=== PATIENT | male | born 1975 | race Hispanic/Latino ===

== ENCOUNTER 2021-02-07 14:14 | Emergency (ER) | payer OTHER, SELFPAY ==
[~2021-02-07] VITALS: Ht 170.2 cm; Wt 106.6 kg
[2021-02-07 14:15] VITALS: BP 150/101
[2021-02-07] MEDS ORDERED: NAPR-1179 PO (15:33)
[2021-02-07] MEDS ORDERED: CLIN300C10 PO (15:33)
== END 2021-02-07 15:45 | disposition home or self-care (01) ==
LOC: EDH 14:14
DX: N49.2 Inflammatory disorders of scrotum (principal); Z88.5 Allergy status to narcotic agent
CPT/HCPCS: 82948; 87070; 87076; 87077; 87186

== ENCOUNTER 2022-12-31 10:18 | Emergency (ER) | payer OTHER ==
[~2022-12-31] VITALS: Ht 170.2 cm; Wt 91.2 kg
[~2022-12-31 10:18] MED LIST: CLIN-141 PO; NAPR-1179 PO
[2022-12-31] MEDS ORDERED: ACETAMINOPHEN 500 MG TABLET PO ONE (11:30)
[2022-12-31 14:55] VITALS: BP 133/74; PULSE 78; RESP 18; O2SAT 99
== END 2022-12-31 14:56 | disposition home or self-care (01) ==
LOC: EDH 10:18
DX: S02.2XXA Fracture of nasal bones, initial encounter for closed fracture (principal); S09.8XXA Other specified injuries of head, initial encounter; Z79.899 Other long term (current) drug therapy; Z98.890 Other specified postprocedural states; Z88.5 Allergy status to narcotic agent; Y04.0XXA Assault by unarmed brawl or fight, initial encounter; Y93.89 Activity, other specified; Y92.89 Other specified places as the place of occurrence of the external cause; Y99.8 Other external cause status
CPT/HCPCS: 70450; 70486; 72125; 72128; 72131